=== PATIENT | female | born 1960 | race Caucasian/White ===

== ENCOUNTER 2022-05-26 13:19 | Outpatient (REF) | payer OTHER, SELFPAY ==
--- NOTE | 2022-05-26 14:21 | ECG_ITS ---
Test Reason : MAJOR DEPRESSIVW D/O Blood Pressure : / mmHG Vent. Rate : 080 BPM Atrial Rate : 080 BPM P-R Int : 158 ms QRS Dur : 070 ms QT Int : 370 ms P-R-T Axes : 050 009 021 degrees QTc Int : 426 ms Normal sinus rhythm Normal ECG When compared with ECG of 04-JAN-2018 16:41, Minimal criteria for Septal infarct are no longer Present Referred By: Cam Chang Electronically Signed By:SHERRON SAUCEDA
[2022-05-26 14:34] LABS: MANUAL DIFF FLAG NO
[2022-05-26 14:40] LABS: Basophils Percent Auto 0.5 % (0-2); Eosinophils Absolute Auto 0.3 X10*3/uL (0.0-0.4); Eosinophils Percent Auto 4.1 % (0-4); Hematocrit 40.5 % (37.0-47.0); Hemoglobin 13.7 g/dl (12.0-16.0); Imm Gran Abs Auto 0.02 X10*3/uL (0.00-0.03); Imm Gran Pct Auto 0.3 % (0.0-0.4); Lymphocytes Absolute Auto 1.5 X10*3/uL (1.2-4.9); Lymphocytes Percent Auto 22.1 % (20-40); Mean Corpuscular HGB Conc 33.8 g/dl (31.0-35.0); Mean Corpuscular Volume 85.6 fL (80.0-98.0); Mean Platelet Volume 10.5 fL (9.4-12.3); Monocytes Absolute Auto 0.4 X10*3/uL (0.1-1.2); Monocytes Percent Auto 5.6 % (2-11); Neutrophils Absolute Auto 4.5 x10*3/uL (2.0-8.3); Neutrophils Percent Auto 67.4 % (45-73); Platelet Count 204 X10*3/uL (160-400); Red Blood Count 4.73 X10*6/uL (4.20-5.50); Red Cell Distribution Width 15.2 % (11.0-16.0); White Blood Count 6.6 X10*3/uL (4.8-10.8)
[2022-05-26 15:04] LABS: Ammonia 26 umol/L (13-55)
[2022-05-26 15:09] LABS: Alanine Aminotransferase 42 U/L (0-31); Albumin Level 4.3 g/dL (3.5-5.0); Alkaline Phosphatase 91 U/L (39-117); Anion Gap 10 (12-20); Aspartate Amino Transferase 36 U/L (5-31); Bilirubin Total 0.6 mg/dL (0.0-1.0); Blood Urea Nitrogen 7 mg/dL (9-16); Calcium 9.2 mg/dL (8.4-10.2); Carbon Dioxide 28 mmol/L (22-29); Chloride 104 mmol/L (96-108); Estimated Glomerular Filt Rate > 60; Glucose Random 95 mg/dL (60-115); Potassium 4.4 mmol/L (3.3-5.1); Sodium 138 mmol/L (135-145)
[2022-05-26 15:31] LABS: Folate 9.7 ng/mL (> or = 4.0); TSH reflex Free T4 3.07 uIU/mL (0.32-4.0); Vitamin B12 1039 pg/mL (200-900)
== END 2022-05-26 13:20 | disposition home or self-care (01) ==
LOC: HO.LAB 13:19
PROVIDERS: Visit Provider Psychiatry & Neurology Psychiatry
DX: F33.2 Major depressive disorder, recurrent severe without psychotic features (principal); F10.90 Alcohol use, unspecified, uncomplicated
CPT/HCPCS: 36415; 80053; 82140; 82607; 82746; 84443; 85025; 90833; 93005; 99212

== ENCOUNTER 2022-05-29 13:26 | Emergency (ER) | payer OTHER, SELFPAY ==
[2022-05-29 14:01] VITALS: BP 160/99; PULSE 104; RESP 18; TEMP 36.6; O2SAT 97; BMI 31.8
[2022-05-29 14:09] LABS: UPreg QC Valid YES; Urine Pregnancy NEGATIVE (NEGATIVE)
[2022-05-29 14:10] LABS: Appearance Urine Clear; Color Urine Dark Yellow; Glucose Urine UA Negative (Negative); Leukocyte Esterase Urine Small (1+) (Negative); Nitrite Urine Negative (Negative); PH 6.5 (5.0-9.0); UMIC TRIGGER UACC YES; Urine Blood Negative (Negative); Urine Ketones Trace mg/dL (Negative); Urine Protein Trace mg/dL (Neg-Trace)
[2022-05-29 14:22] LABS: Bacteria Urine Trace (None Seen); COVID-19 Test Negative (Negative); Hyaline Casts Urine 0-2 /LPF (0-2); IDNOW Serial# 08D9AD1C; RBC Urine 0-2 /HPF (0-2); UACC Culture Trigger YES; WBC Urine 0-5 /HPF (0-5)
--- NOTE | 2022-05-29 14:24 | ED.PSYCH ---
HPI - Psych General Chief Complaint: Psychiatric Symptoms <JUSTIN Santos - Last Filed: 06/02/22 17:39> Stated Complaint: Crisis sent by Charlene <JUSTIN Santos Last Filed: 06/02/22 17:39> Time Seen by Provider: 05/29/22 14:11 <JUSTIN Santos Last Filed: 06/02/22 17:39> Source: patient <JUSTIN Santos Last Filed: 06/02/22 17:39> Mode of arrival: ambulatory <JUSTIN Santos Last Filed: 06/02/22 17:39> History of Present Illness HPI Narrative: 62-year-old female with a past medical history of alcohol use disorder, depression, presenting to the ED complaining of increasing depression and suicidal ideations without plan worsening with past few months after losing her mother, and 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 States she is having difficulty coping at home, would like to get help before it gets worse, reports feeling fearful. Reports drinking 2 glasses of red wine daily, and smoking THC prior to bed, denies other illicit substances. Denies CP/SOB, abdominal pain, nausea/vomiting, HI, AH/VH <JUSTIN Santos Last Filed: 06/02/22 17:39> MD complaint: suicidal ideation <JUSTIN Santos Last Filed: 06/02/22 17:39> Related Data Home Medications: Home Medications Medication Instructions Recorded Confirmed sertraline 100 mg tablet 200 mg PO BEDTIME 05/26/22 06/04/22 ferrous sulfate 325 mg (65 mg 325 mg PO 4XW 05/28/22 06/04/22 iron) tablet bupropion HCl 150 mg tablet,12 hr 150 mg PO DAILY 06/04/22 06/04/22 sustained-release trazodone 50 mg tablet 25 - 100 mg PO BEDTIME PRN Insomnia 06/04/22 06/04/22 Previous Rx's Medication Instructions Recorded cefuroxime axetil 250 mg tablet 250 mg PO BID 7 days #14 tabs 06/02/22 <JUSTIN Santos Last Filed: 06/02/22 17:39> Allergies/Adverse Reactions: Allergies Allergy/AdvReac Type Severity Reaction Status Date / Time Sulfa (Sulfonamide Allergy Rash Verified 05/29/22 13:53 Antibiotics) <JUSTIN Santos Last Filed: 06/02/22 17:39> Review of Systems Review of Systems: Constitutional: No Fever, No Chills, No Night Sweats, No Fatigue, No Malaise ENT/Mouth: No Hearing loss, No Ear Pain, No Nasal Congestion, No Sinus Pain, No Hoarseness, No sore throat, No Rhinorrhea, No Swallowing Difficulty Eyes: No Eye Pain, No Swelling, No Redness, No Foreign Body, No Discharge, No Vision Changes Cardiovascular: No Chest Pain, No SOB, No Dyspnea on Exertion, No Orthopnea, No Edema, No Palpitations Respiratory: No Cough, No Sputum, No Wheezing, No Smoke Exposure, No Dyspnea Gastrointestinal: No Nausea, No Vomiting, No Diarrhea, No Constipation, No Abdominal pain, No Hematochezia, No Melena Genitourinary: No irregular bleeding, No Dysuria, No Urinary Frequency, No Hematuria, No Urinary Incontinence/retention, No Urgency, No Flank Pain, No Urinary Flow Changes, No Hesitancy Musculoskeletal: No joint pain, No Myalgias, No Joint Swelling Skin: No Skin Lesions, No rash Neuro: No Weakness, No Numbness, No Paresthesias, No Loss of Consciousness, No Dizziness, No Headache Psych: + Anxiety/Panic, + Depression, + SI, No HI/AH/VH, No Social Issues <JUSTIN Santos Last Filed: 06/02/22 17:39> Yes all other systems are reviewed and are negative <JUSTIN Santos Last Filed: 06/02/22 17:39> Constitutional: Constitutional: Reports as per HPI <JUSTIN Santos Last Filed: 06/02/22 17:39> PMFSH Past Medical History Attestation statement: The following information was validated with the patient. <JUSTIN Santos Last Filed: 06/02/22 17:39> Medical History: Medical History Alcohol use disorder Depression, major, severe recurrence <JUSTIN Santos Last Filed: 06/02/22 17:39> Surgical History: Surgical History H/O bladder repair surgery History of hip replacement <JUSTIN Santos - Last Filed: 06/02/22 17:39> Social History Social History: Social History Household Members: None Patient Tobacco Use Status: Current everyday Tobacco user Tobacco use type: Cigarette Cigarettes Per Day: 5 <JUSTIN Santos - Last Filed: 06/02/22 17:39> Physical Exam Vital Signs: Vital Signs: Last Vital Signs Temp 98 F 05/29/22 14:01 Pulse 104 H 05/29/22 14:01 Resp 15 05/29/22 16:04 BP 160/99 H 05/29/22 14:01 Pulse Ox 97 05/29/22 14:01 O2 Del Method Room Air 05/29/22 14:01 BMI result Body Mass Index 31.8 <JUSTIN Santos - Last Filed: 06/02/22 17:39> Vital Signs: Last Vital Signs Temp 98 F 05/29/22 14:01 Pulse 104 H 05/29/22 14:01 Resp 15 05/29/22 16:04 BP 160/99 H 05/29/22 14:01 Pulse Ox 97 05/29/22 14:01 O2 Del Method Room Air 05/29/22 14:01 BMI result Body Mass Index 31.8 <Donnell Verdugo - Last Filed: 05/29/22 19:01> Const: General: cooperative, healthy appearing, no acute distress, alert and awake <JUSTIN Santos - Last Filed: 06/02/22 17:39> Orientation/consciousness: patient oriented x3 <JUSTIN Santos - Last Filed: 06/02/22 17:39> Limitations: no limitations <JUSTIN Santos - Last Filed: 06/02/22 17:39> HEENT: Head: Yes normal to inspection and Yes atraumatic <JUSTIN Santos - Last Filed: 06/02/22 17:39> Ears: hearing grossly normal bilaterally <JUSTIN Santos - Last Filed: 06/02/22 17:39> General nose exam: Normal external nose present <Carla Breen PA - Last Filed: 06/02/22 17:39> Face and sinus: Yes normal facial exam <Carla Breen PA - Last Filed: 06/02/22 17:39> Eyes: General: appearance normal, both eyes and all related structures <Carla Breen PA - Last Filed: 06/02/22 17:39> EOM: EOMs intact bilaterally <Carla Breen PA - Last Filed: 06/02/22 17:39> Neck: Neck: Yes normal visual inspection and Yes no meningeal signs <Carla Breen PA - Last Filed: 06/02/22 17:39> Resp: Effort & Inspection: normal respiratory effort and no respiratory distress <Carla Breen PA - Last Filed: 06/02/22 17:39> Auscultation: clear to auscultation bilaterally <Carla Breen PA - Last Filed: 06/02/22 17:39> Cardio: Rate: regular rate <Carla Breen PA - Last Filed: 06/02/22 17:39> Heart sounds: S1 normal heart sound present and S2 normal heart sound present <Carla Breen PA - Last Filed: 06/02/22 17:39> GI: Inspection: Yes normal to inspection <Carla Breen PA - Last Filed: 06/02/22 17:39> Palpation (GI): Soft to palpation, nontender, no guarding and not rigid <Carla Breen PA - Last Filed: 06/02/22 17:39> Skin: Rashes: no rashes <Carla Breen PA - Last Filed: 06/02/22 17:39> Wounds: no wounds <Carla Breen PA - Last Filed: 06/02/22 17:39> Neuro: General: patient oriented x3, tone normal and no meningeal signs <Carla Breen PA - Last Filed: 06/02/22 17:39> Gait exam (Neuro): Normal gait present <Carla Breen PA - Last Filed: 06/02/22 17:39> Extrem: General: Yes normal to inspection <Carla Breen PA - Last Filed: 06/02/22 17:39> Psych: Affect: Sad affect present <JUSTIN Santos - Last Filed: 06/02/22 17:39> Attitude: cooperative <JUSTIN Santos - Last Filed: 06/02/22 17:39> Thought content: Suicidality present, no homicidality and Depressive thoughts present <JUSTIN Santos - Last Filed: 06/02/22 17:39> Course Course Course Narrative: -labs unremarkable. Tox screen negative -1613--physician observation initiated as patient needs more time be evaluated by CARE team -1800-- ED care transferred to [facility] pending CARE consult <JUSTIN Santos - Last Filed: 06/02/22 17:39> -labs unremarkable. Tox screen negative -1613--physician observation initiated as patient needs more time be evaluated by CARE team -1800-- ED care transferred to [facility] pending CARE consult -1900 patient received in sign-out at change of shift shift pending care Team consult. The patient was seen and evaluated by the care team who also discussed with the patient's psychiatrist. The patient is stable for discharge at this time and the care team will follow the patient over the weekend and began a partial hospitalization search as soon as possible <Donnell Verdugo - Last Filed: 05/29/22 19:01> Reevaluation(s) Reevaluation #1: 06/02/22-- received patient urine culture which grew greater than 100,000 mixed bacteria. Called and spoke with patient, reports UTI symptoms, sent in Ceftin to the pharmacy. Admits she has follow-up with Dr. Chang tomorrow <JUSTIN Santos - Last Filed: 06/02/22 17:39> Medical Decision Making Medical Decision Making MDM Narrative: 62-year-old female with a past medical history of alcohol use disorder, depression, presenting to the ED complaining of increasing depression and suicidal ideations without plan worsening with past few months. On exam mildly tachycardic, depressed, sad, cooperative. Concern for increasing depression/suicidal ideations. Low suspicion for infectious or metabolic etiology Plan: Labs, UA, drug screen, CARE team consult Please refer to course for remaining clinical decision making, interpretation of labs/imaging results, and discussions with consultants and/or family members. <JUSTIN Santos - Last Filed: 06/02/22 17:39> Differential Diagnosis Differential Diagnoses: The differential diagnosis associated with the presentation includes <JUSTIN Santos - Last Filed: 06/02/22 17:39> As above <JUSTIN Santos - Last Filed: 06/02/22 17:39> Admission/Observation Consideration of admission/observation: Escalation of care including admission/observation considered <JUSTIN Santos - Last Filed: 06/02/22 17:39> Lab Data MDM Lab Attestation statement: I reviewed the patient's lab results. <JUSTIN Santos - Last Filed: 06/02/22 17:39> Result Diagrams: 05/29/22 15:25 05/29/22 15:25 <JUSTIN Santos - Last Filed: 06/02/22 17:39> Labs: Lab Results 05/29/22 05/29/22 05/29/22 Range/Units 14:01 14:01 14:01 WBC (4.8-10.8) X10*3/uL RBC (4.20-5.50) X10*6/uL Hgb (12.0-16.0) g/dl Hct (37.0-47.0) % MCV (80.0-98.0) fL MCH (27.0-33.0) pg MCHC (31.0-35.0) g/dl RDW (11.0-16.0) % Plt Count (160-400) X10*3/uL MPV (9.4-12.3) fL Immature Gran % (Auto) (0.0-0.4) % Neut % (Auto) (45-73) % Lymph % (Auto) (20-40) % [place] % (Auto) (2-11) % Eos % (Auto) (0-4) % Baso % (Auto) (0-2) % Lymph # (Auto) (1.2-4.9) X10*3/uL [place] # (Auto) (0.1-1.2) X10*3/uL Eos # (Auto) (0.0-0.4) X10*3/uL Baso # (Auto) (0.0-0.2) X10*3/uL Abs Immat Gran (auto) (0.00-0.03) X10*3/uL Absolute Neuts (auto) (2.0-8.3) x10*3/uL Absolute Nucleated RBC (0.0-0.012) X10*3/uL Nucleated RBC % (auto) (0.0-0.2) /100WBC Sodium (135-145) mmol/L Potassium (3.3-5.1) mmol/L Chloride (96-108) mmol/L Carbon Dioxide (22-29) mmol/L Anion Gap (12-20) BUN (9-16) mg/dL Creatinine (0.5-1.4) mg/dL Estim Creat Clear Calc Estimated GFR Random Glucose (60-115) mg/dL Calcium (8.4-10.2) mg/dL Total Bilirubin (0.0-1.0) mg/dL AST (5-31) U/L ALT (0-31) U/L Alkaline Phosphatase (39-117) U/L Total Protein (6.5-8.0) g/dL Albumin (3.5-5.0) g/dL Urine Color Dark Yellow Urine Appearance Clear Urine pH 6.5 (5.0-9.0) Ur Specific [place] 1.020 (1.005-1.025) Urine Protein Trace (Neg-Trace) mg/dL Urine Glucose (UA) Negative (Negative) mg/dL Urine Ketones Trace (Negative) mg/dL Urine Blood Negative (Negative) Urine Nitrite Negative (Negative) Ur Leukocyte Esterase Small (1+) H (Negative) Urine RBC 0-2 (0-2) /HPF Urine WBC 0-5 (0-5) /HPF Ur Squamous Epith Cells 6-10 (0-2) /HPF Urine Bacteria Trace (None Seen) Hyaline Casts 0-2 (0-2) /LPF Urine Test NEGATIVE (NEGATIVE) Salicylates (15-30) mg/dL Urine Opiates Screen (Not Detect) Urine Fentanyl Screen (Not Detect) Acetaminophen (<30) mcg/mL Ur Barbiturates Screen (Not Detect) Ur Phencyclidine Scrn (Not Detect) Ur Amphetamines Screen (Not Detect) U Benzodiazepines Scrn (Not Detect) Urine Cocaine Screen (Not Detect) U Marijuana (THC) Screen (Not Detect) Ethyl Alcohol mg/dL COVID-19 (BRAULIO) Negative (Negative) COVID-19 Clin Com See Note 05/29/22 05/29/22 05/29/22 Range/Units 14:01 15:25 15:25 WBC 5.7 (4.8-10.8) X10*3/uL RBC 4.50 (4.20-5.50) X10*6/uL Hgb 12.8 (12.0-16.0) g/dl Hct 38.5 (37.0-47.0) % MCV 85.6 (80.0-98.0) fL MCH 28.4 (27.0-33.0) pg MCHC 33.2 (31.0-35.0) g/dl RDW 15.1 (11.0-16.0) % Plt Count 176 (160-400) X10*3/uL MPV 10.5 (9.4-12.3) fL Immature Gran % (Auto) 0.2 (0.0-0.4) % Neut % (Auto) 72.3 (45-73) % Lymph % (Auto) 18.5 L (20-40) % [place] % (Auto) 5.4 (2-11) % Eos % (Auto) 3.1 (0-4) % Baso % (Auto) 0.5 (0-2) % Lymph # (Auto) 1.1 L (1.2-4.9) X10*3/uL [place] # (Auto) 0.3 (0.1-1.2) X10*3/uL Eos # (Auto) 0.2 (0.0-0.4) X10*3/uL Baso # (Auto) 0.0 (0.0-0.2) X10*3/uL Abs Immat Gran (auto) 0.01 (0.00-0.03) X10*3/uL Absolute Neuts (auto) 4.1 (2.0-8.3) x10*3/uL Absolute Nucleated RBC 0.000 (0.0-0.012) X10*3/uL Nucleated RBC % (auto) 0.0 (0.0-0.2) /100WBC Sodium 139 (135-145) mmol/L Potassium 4.5 (3.3-5.1) mmol/L Chloride 106 (96-108) mmol/L Carbon Dioxide 27 (22-29) mmol/L Anion Gap 11 L (12-20) BUN 11 (9-16) mg/dL Creatinine 0.76 (0.5-1.4) mg/dL Estim Creat Clear Calc 79.6 Estimated GFR > 60 Random Glucose 108 (60-115) mg/dL Calcium 8.9 (8.4-10.2) mg/dL Total Bilirubin 0.5 (0.0-1.0) mg/dL AST 26 (5-31) U/L ALT 29 (0-31) U/L Alkaline Phosphatase 82 (39-117) U/L Total Protein 6.5 (6.5-8.0) g/dL Albumin 4.0 (3.5-5.0) g/dL Urine Color Urine Appearance Urine pH (5.0-9.0) Ur Specific [place] (1.005-1.025) Urine Protein (Neg-Trace) mg/dL Urine Glucose (UA) (Negative) mg/dL Urine Ketones (Negative) mg/dL Urine Blood (Negative) Urine Nitrite (Negative) Ur Leukocyte Esterase (Negative) Urine RBC (0-2) /HPF Urine WBC (0-5) /HPF Ur Squamous Epith Cells (0-2) /HPF Urine Bacteria (None Seen) Hyaline Casts (0-2) /LPF Urine Test (NEGATIVE) Salicylates < 5.0 L (15-30) mg/dL Urine Opiates Screen Not Detected (Not Detect) Urine Fentanyl Screen POSITIVE H (Not Detect) Acetaminophen < 17 (<30) mcg/mL Ur Barbiturates Screen Not Detected (Not Detect) Ur Phencyclidine Scrn Not Detected (Not Detect) Ur Amphetamines Screen Not Detected (Not Detect) U Benzodiazepines Scrn Not Detected (Not Detect) Urine Cocaine Screen Not Detected (Not Detect) U Marijuana (THC) Screen POSITIVE H (Not Detect) Ethyl Alcohol < 10 mg/dL COVID-19 (BRAULIO) (Negative) COVID-19 Clin Com <JUSTIN Santos - Last Filed: 06/02/22 17:39> Lab Results 05/29/22 05/29/22 05/29/22 Range/Units 14:01 14:01 14:01 WBC (4.8-10.8) X10*3/uL RBC (4.20-5.50) X10*6/uL Hgb (12.0-16.0) g/dl Hct (37.0-47.0) % MCV (80.0-98.0) fL MCH (27.0-33.0) pg MCHC (31.0-35.0) g/dl RDW (11.0-16.0) % Plt Count (160-400) X10*3/uL MPV (9.4-12.3) fL Immature Gran % (Auto) (0.0-0.4) % Neut % (Auto) (45-73) % Lymph % (Auto) (20-40) % [place] % (Auto) (2-11) % Eos % (Auto) (0-4) % Baso % (Auto) (0-2) % Lymph # (Auto) (1.2-4.9) X10*3/uL [place] # (Auto) (0.1-1.2) X10*3/uL Eos # (Auto) (0.0-0.4) X10*3/uL Baso # (Auto) (0.0-0.2) X10*3/uL Abs Immat Gran (auto) (0.00-0.03) X10*3/uL Absolute Neuts (auto) (2.0-8.3) x10*3/uL Absolute Nucleated RBC (0.0-0.012) X10*3/uL Nucleated RBC % (auto) (0.0-0.2) /100WBC Sodium (135-145) mmol/L Potassium (3.3-5.1) mmol/L Chloride (96-108) mmol/L Carbon Dioxide (22-29) mmol/L Anion Gap (12-20) BUN (9-16) mg/dL Creatinine (0.5-1.4) mg/dL Estim Creat Clear Calc Estimated GFR Random Glucose (60-115) mg/dL Calcium (8.4-10.2) mg/dL Total Bilirubin (0.0-1.0) mg/dL AST (5-31) U/L ALT (0-31) U/L Alkaline Phosphatase (39-117) U/L Total Protein (6.5-8.0) g/dL Albumin (3.5-5.0) g/dL Urine Color Dark Yellow Urine Appearance Clear Urine pH 6.5 (5.0-9.0) Ur Specific [place] 1.020 (1.005-1.025) Urine Protein Trace (Neg-Trace) mg/dL Urine Glucose (UA) Negative (Negative) mg/dL Urine Ketones Trace (Negative) mg/dL Urine Blood Negative (Negative) Urine Nitrite Negative (Negative) Ur Leukocyte Esterase Small (1+) H (Negative) Urine RBC 0-2 (0-2) /HPF Urine WBC 0-5 (0-5) /HPF Ur Squamous Epith Cells 6-10 (0-2) /HPF Urine Bacteria Trace (None Seen) Hyaline Casts 0-2 (0-2) /LPF Urine Test NEGATIVE (NEGATIVE) Salicylates (15-30) mg/dL Urine Opiates Screen (Not Detect) Urine Fentanyl Screen (Not Detect) Acetaminophen (<30) mcg/mL Ur Barbiturates Screen (Not Detect) Ur Phencyclidine Scrn (Not Detect) Ur Amphetamines Screen (Not Detect) U Benzodiazepines Scrn (Not Detect) Urine Cocaine Screen (Not Detect) U Marijuana (THC) Screen (Not Detect) Ethyl Alcohol mg/dL COVID-19 (BRAULIO) Negative (Negative) COVID-19 Clin Com See Note 05/29/22 05/29/22 05/29/22 Range/Units 14:01 15:25 15:25 WBC 5.7 (4.8-10.8) X10*3/uL RBC 4.50 (4.20-5.50) X10*6/uL Hgb 12.8 (12.0-16.0) g/dl Hct 38.5 (37.0-47.0) % MCV 85.6 (80.0-98.0) fL MCH 28.4 (27.0-33.0) pg MCHC 33.2 (31.0-35.0) g/dl RDW 15.1 (11.0-16.0) % Plt Count 176 (160-400) X10*3/uL MPV 10.5 (9.4-12.3) fL Immature Gran % (Auto) 0.2 (0.0-0.4) % Neut % (Auto) 72.3 (45-73) % Lymph % (Auto) 18.5 L (20-40) % [place] % (Auto) 5.4 (2-11) % Eos % (Auto) 3.1 (0-4) % Baso % (Auto) 0.5 (0-2) % Lymph # (Auto) 1.1 L (1.2-4.9) X10*3/uL [place] # (Auto) 0.3 (0.1-1.2) X10*3/uL Eos # (Auto) 0.2 (0.0-0.4) X10*3/uL Baso # (Auto) 0.0 (0.0-0.2) X10*3/uL Abs Immat Gran (auto) 0.01 (0.00-0.03) X10*3/uL Absolute Neuts (auto) 4.1 (2.0-8.3) x10*3/uL Absolute Nucleated RBC 0.000 (0.0-0.012) X10*3/uL Nucleated RBC % (auto) 0.0 (0.0-0.2) /100WBC Sodium 139 (135-145) mmol/L Potassium 4.5 (3.3-5.1) mmol/L Chloride 106 (96-108) mmol/L Carbon Dioxide 27 (22-29) mmol/L Anion Gap 11 L (12-20) BUN 11 (9-16) mg/dL Creatinine 0.76 (0.5-1.4) mg/dL Estim Creat Clear Calc 79.6 Estimated GFR > 60 Random Glucose 108 (60-115) mg/dL Calcium 8.9 (8.4-10.2) mg/dL Total Bilirubin 0.5 (0.0-1.0) mg/dL AST 26 (5-31) U/L ALT 29 (0-31) U/L Alkaline Phosphatase 82 (39-117) U/L Total Protein 6.5 (6.5-8.0) g/dL Albumin 4.0 (3.5-5.0) g/dL Urine Color Urine Appearance Urine pH (5.0-9.0) Ur Specific [place] (1.005-1.025) Urine Protein (Neg-Trace) mg/dL Urine Glucose (UA) (Negative) mg/dL Urine Ketones (Negative) mg/dL Urine Blood (Negative) Urine Nitrite (Negative) Ur Leukocyte Esterase (Negative) Urine RBC (0-2) /HPF Urine WBC (0-5) /HPF Ur Squamous Epith Cells (0-2) /HPF Urine Bacteria (None Seen) Hyaline Casts (0-2) /LPF Urine Test (NEGATIVE) Salicylates < 5.0 L (15-30) mg/dL Urine Opiates Screen Not Detected (Not Detect) Urine Fentanyl Screen POSITIVE H (Not Detect) Acetaminophen < 17 (<30) mcg/mL Ur Barbiturates Screen Not Detected (Not Detect) Ur Phencyclidine Scrn Not Detected (Not Detect) Ur Amphetamines Screen Not Detected (Not Detect) U Benzodiazepines Scrn Not Detected (Not Detect) Urine Cocaine Screen Not Detected (Not Detect) U Marijuana (THC) Screen POSITIVE H (Not Detect) Ethyl Alcohol < 10 mg/dL COVID-19 (BRAULIO) (Negative) COVID-19 Clin Com <Donnell Verdugo - Last Filed: 05/29/22 19:01> Radiology Impression Discussion of test interpretation with radiology: I have reviewed the radiologist's reading. <JUSTIN Santos - Last Filed: 06/02/22 17:39> External Record Review External record reviewed: Inpatient record, Office record, Outpatient record, Prior outpatient labs, Prior outpatient radiology, Primary care record and Outside ED record <JUSTIN Santos - Last Filed: 06/02/22 17:39> Discharge Plan Discharge Clinical Impression: Depression, major, severe recurrence <JUSTIN Santos - Last Filed: 06/02/22 17:39> Patient Disposition: Home, Self-Care <JUSTIN Satnos - Last Filed: 06/02/22 17:39> Instructions: Depression (ED) <JUSTIN Santos - Last Filed: 06/02/22 17:39> Additional Instructions: Take all your medications as prescribed only. Follow-up with your psychiatrist. Return to the emergency department immediately if you develop any worsening depression or thoughts of harming yourself <JUSTIN Satnos - Last Filed: 06/02/22 17:39> Prescriptions: New cefuroxime axetil 250 mg tablet 250 mg PO BID 7 Days Qty: 14 0RF No Action bupropion HCl 150 mg tablet sustained-release 12 hr 150 mg PO DAILY Patient Comments: Patient reports she restarted Wellbutrin [address] Howell is aware and patient is to continue. trazodone 50 mg tablet 25 - 100 mg PO BEDTIME PRN (Reason: Insomnia) Patient Comments: Patient reports she is taking Trazodone prn. Rx Instructions: Last filled 08/2021. sertraline 100 mg tablet 200 mg PO BEDTIME ferrous sulfate 325 mg (65 mg iron) tablet 325 mg PO 4XW <JUSTIN Santos - Last Filed: 06/02/22 17:39> Interventions: [place]-Suicide Risk Severity Scale Last Done: 05/29/22 14:52 ED Discharge Assessment Last Done: 05/29/22 19:04 <JUSTIN Santos - Last Filed: 06/02/22 17:39> Discharge Date/Time: 05/29/22 19:45 <JUSTIN Santos - Last Filed: 06/02/22 17:39>
[2022-05-29 15:29] LABS: MANUAL DIFF FLAG NO
[2022-05-29 15:31] LABS: Basophils Percent Auto 0.5 % (0-2); Eosinophils Absolute Auto 0.2 X10*3/uL (0.0-0.4); Eosinophils Percent Auto 3.1 % (0-4); Hematocrit 38.5 % (37.0-47.0); Hemoglobin 12.8 g/dl (12.0-16.0); Imm Gran Abs Auto 0.01 X10*3/uL (0.00-0.03); Imm Gran Pct Auto 0.2 % (0.0-0.4); Lymphocytes Absolute Auto 1.1 X10*3/uL (1.2-4.9); Lymphocytes Percent Auto 18.5 % (20-40); Mean Corpuscular HGB Conc 33.2 g/dl (31.0-35.0); Mean Corpuscular Hemoglobin 28.4 pg (27.0-33.0); Mean Corpuscular Volume 85.6 fL (80.0-98.0); Mean Platelet Volume 10.5 fL (9.4-12.3); Monocytes Absolute Auto 0.3 X10*3/uL (0.1-1.2); Monocytes Percent Auto 5.4 % (2-11); Neutrophils Absolute Auto 4.1 x10*3/uL (2.0-8.3); Neutrophils Percent Auto 72.3 % (45-73); Platelet Count 176 X10*3/uL (160-400); Red Cell Distribution Width 15.1 % (11.0-16.0); White Blood Count 5.7 X10*3/uL (4.8-10.8)
[2022-05-29 15:54] LABS: Acetaminophen LAB < 17 mcg/mL (<30); Alanine Aminotransferase 29 U/L (0-31); Alkaline Phosphatase 82 U/L (39-117); Anion Gap 11 (12-20); Aspartate Amino Transferase 26 U/L (5-31); Bilirubin Total 0.5 mg/dL (0.0-1.0); Blood Urea Nitrogen 11 mg/dL (9-16); Calcium 8.9 mg/dL (8.4-10.2); Carbon Dioxide 27 mmol/L (22-29); Chloride 106 mmol/L (96-108); Creatinine Clr Calc Pharmacy 79.6; Estimated Glomerular Filt Rate > 60; Ethanol < 10 mg/dL; Glucose Random 108 mg/dL (60-115); Potassium 4.5 mmol/L (3.3-5.1); Salicylate < 5.0 mg/dL (15-30); Sodium 139 mmol/L (135-145); Total Protein 6.5 g/dL (6.5-8.0)
[2022-05-29 16:04] VITALS: RESP 15
[2022-05-29 16:55] LABS: Amphetamine Screen Urine Not Detected (Not Detect); Barbiturates, Urine Not Detected (Not Detect); Benzodiazepines Screen Urine Not Detected (Not Detect); Cannabinoid Screen Urine POSITIVE (Not Detect); Cocaine Screen Urine Not Detected (Not Detect); Fentanyl, urine POSITIVE (Not Detect); Opiate Screen Urine Not Detected (Not Detect); Phencyclidine Screen Urine Not Detected (Not Detect)
--- NOTE | 2022-05-29 17:37 | PC.NURSE ---
CARE team clinician at bedside for eval. Pt appears to be in behavioral control at this time.
--- NOTE | 2022-05-30 11:22 | MHC.CARE ---
Pt has been referred to Molly [facility]KEON on this date
--- NOTE | 2022-05-30 14:16 | MHC.CARE ---
CARE Team contacts pt to conduct a follow up phone call. Pt reports that she feels great and could dance . She reports the electric shock feeling as being almost gone. She reports good sleep and appetite and attributes her overall sense of well being to knowing what her issue is that brought her to the ED.
== END 2022-05-29 19:45 | disposition home or self-care (01) ==
PROVIDERS: Physician Assistant; Emergency Provider Emergency Medicine Emergency Medical Services
DX: F33.2 Major depressive disorder, recurrent severe without psychotic features (principal); R45.851 Suicidal ideations; Z20.822 Contact with and (suspected) exposure to COVID-19; F10.90 Alcohol use, unspecified, uncomplicated; Y90.0 Blood alcohol level of less than 20 mg/100 ml; F41.9 Anxiety disorder, unspecified; F17.210 Nicotine dependence, cigarettes, uncomplicated; F12.90 Cannabis use, unspecified, uncomplicated; Z79.899 Other long term (current) drug therapy
CPT/HCPCS: 36415; 80053; 80143; 80179; 80307; 81001; 81025; 82077; 85025; 87086; 87635; 99284; S9485

== ENCOUNTER 2022-06-26 09:00 | Outpatient (RCR) | payer OTHER, SELFPAY ==
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
--- NOTE | 2022-06-04 15:41 | PC.ADMIT ---
Patient is a 62 year old female who was referred to PHP by the Care Team in the ER where she self presented d/t increased sxs of depression with passive SI and anxiety. Per records patient reported to the Care Team that she has a , thunderstorm in her brain unable to focus or concentrate on things she normally is able to. She reportedly told the Care Team that she saw her psychiatrist Dr Chang on 05/26/22 and infomed him of increased depression for the past 3 weks and increased her Zoloft to 300 mg daily as a result. Patient advised to take medcaitions as prescribed which she currently stated she is taking 200 mg Zoloft daily. Patient also told this engineering writer that she restarted Wellbutrin prescription, Dr Chang is aware and patient to continue. Patient also has a history of struggling with ETOH use reported drinking a handle of Vodka or Tequila a week. Patient reports she has cut down and now has a glass of wine 5 days a week and adds water to it. Patient is alert and oriented x4. Calm and cooperative. Presents with depressed mood and affect. Passive SI, denied plan or intent. I gave patient a copy of her safety plan if needed and reviewed it with her. Medications reconciled with patient, patient's pharmacy, and Dr Chang.
--- NOTE | 2022-06-04 15:47 | HO.PHP ---
Clients case was reviewed and opened today in treatment team.
--- NOTE | 2022-06-11 12:26 | P.PNPSP_ITS ---
Subjective Subjective Date of Service: 06/11/22 Reason For Visit: depression Medical Problems Affecting Mental Status: No Interim History: Reports feeling ?tired today ?. Continues with depressed mood, states some improvement, finding PHP helpful. Reports no alcohol or nicotine consumption for past 3 days. Denies SI, reports that she feels safe. Had job interview yesterday. Wants therapist referral. Medication Compliance: Yes Side effects from medications: No Attending Groups: Yes Review of Systems Acute medical concerns: No Medical Review of Systems: unchanged Review of Systems Review of Systems Yes all other systems are reviewed and are negative Constitutional: Reports no additional constitutional complaints Mental Status Exam Mental Status Exam Narrative: NAD Patient Appearance: Well Grooomed Patient Orientation: Person, Place, Time and Situation Level of Consciousness: Appropriate Patient Behavior: Appropriate, Cooperative and Good Eye Contact Mood Description: Depressed Affect Description: Depressed Patient Cognition Impaired: No Ability to Follow Directions: Excellent Speech Pattern: Clear Memory Description: Intact Hallucinations: None Delusions: Not Present Thought Process: Intact Thought Content: positive for Intact Depressive Symptoms: Increased Anxiety, Difficulty Sleeping, Loss of Int. in Activity, Isolating-Friends/Family, Increased Fatigue, Loss of Energy and Difficulty Concentrating Judgement: Fair Assessment & Plan Assessment & Plan (1) Depression, major, severe recurrence: Status: Acute Code(s): F33.2 - Major depressive disorder, recurrent severe without psychotic features Assessment and Plan: Reports feeling ?tired today ?. Finding groups to be draining at times, although beneficial. Also states that the amount of energy it took yesterday for her to go to a job interview was tiring. Continues with depressed mood, states some improvement, finding PHP helpful. Reports no alcohol or nicotine consumption for past 3 days. Discussed in alcohol use, and its relationship as a depressant, worsening depressive symptoms. She states that she has chosen for the past 3 days not to consume any, and has found this beneficial. States that when she does consume alcohol at this time, it is now better is a mix with water, as she has been tapering down her use over the past 2 years. Denies SI, reports that she feels safe. Had job interview yesterday. Reports that the position would be in-person, and that this may assist with adding daily structure. Wants therapist referral. States that she understands she really needs to begin working with a therapist. We discussed a referral to [facility]. She stated she was interested in this. Satisfied with current medication regimen, feels it is helping to lower depressive sx. (2) Alcohol use disorder: Status: Acute Code(s): F10.90 - Alcohol use, unspecified, uncomplicated Plan 1. Continue with current [facility] plan of care. 2. Continue with current medications as prescribed by outpatient psychiatrist. 3. Alcohol risk reduction/harm reduction discussion. 4. Follow-up as per protocol. Patient educated on: diagnosis, medication risk/benefits, substance abuse and therapeutic strategies Reason for contiued partial hosp. stay Substantial Risk for: harm to self, inability to function and rapid decompensation Certification I certify that partial hospital treatment is medically necessary due to the symptoms and problems resulting from the patient's mental illness and the failure to treat the patient at the partial hospital level of care would likely result in the patient requiring inpatient psychiatric care which could not be prevented at a less intensive level of care. Total time managing care of this patient today _20___ minutes. Discharge Plan Discharge Attending provider: Wayne Bond Medications: No Action cefuroxime axetil 250 mg tablet 250 mg PO BID 7 Days Qty: 14 0RF bupropion HCl 150 mg tablet sustained-release 12 hr 150 mg PO DAILY Patient Comments: Patient reports she restarted Wellbutrin [address] Howell is aware and patient is to continue. trazodone 50 mg tablet 25 - 100 mg PO BEDTIME PRN (Reason: Insomnia) Patient Comments: Patient reports she is taking Trazodone prn. Rx Instructions: Last filled 08/2021. sertraline 100 mg tablet 200 mg PO BEDTIME ferrous sulfate 325 mg (65 mg iron) tablet 325 mg PO 4XW
--- NOTE | 2022-06-18 12:09 | HO.PHPPROGNO ---
Subjective Subjective Date of Service: 06/18/22 Reason For Visit: depression Medical Problems Affecting Mental Status: No Interim History: Anxious, concerned about what she will do when she discharges from partial program. No SI, depression improved. Feels safe. States she hopes to find a therapist soon. Reports current medication regimen working well. Has remained abstinent from alcohol for 9 days. Medication Compliance: Yes Side effects from medications: No Attending Groups: Yes Review of Systems Acute medical concerns: No Medical Review of Systems: unchanged Review of Systems Review of Systems Yes all other systems are reviewed and are negative Constitutional: Reports no additional constitutional complaints Mental Status Exam Mental Status Exam Narrative: NAD Patient Appearance: Well Grooomed Patient Orientation: Person, Place, Time and Situation Level of Consciousness: Appropriate Patient Behavior: Appropriate, Cooperative and Good Eye Contact Mood Description: Anxious Affect Description: Depressed (improved) and Anxious Patient Cognition Impaired: No Ability to Follow Directions: Excellent Speech Pattern: Clear Memory Description: Intact Hallucinations: None Delusions: Not Present Thought Process: Intact Thought Content: positive for Intact Depressive Symptoms: Increased Anxiety Judgement: Fair Assessment & Plan Assessment & Plan (1) Depression, major, severe recurrence: Status: Acute Code(s): F33.2 - Major depressive disorder, recurrent severe without psychotic features Assessment and Plan: Depression symptoms improved. Satisfied with current antidepressant medication and dose. No SI, feels safe. Express some anxiety, finds structure and groups in partial helpful. Anxious about finding a therapist. No alcohol in 9 days. Denies any cravings. We discussed medications, patient had been given information regarding medications in the past. Discussed a trial of naltrexone at this time. She was agreeable. Patient was provided with information regarding various support groups for alcohol use. Some nicotine cravings, Not smoking currently. Finds the Wellbutrin helping with this. (2) Alcohol use disorder: Status: Acute Code(s): F10.90 - Alcohol use, unspecified, uncomplicated Plan 1. Continue with current [facility] plan of care. 2. Start naltrexone. 3. Continue other medications as prescribed. 4. Recovery support/risk reduction discussion. 5. Follow-up as per protocol. Patient educated on: diagnosis, medication risk/benefits, substance abuse and therapeutic strategies Informed Consent: understands Reason for contiued partial hosp. stay Substantial Risk for: inability to function and rapid decompensation Certification I certify that partial hospital treatment is medically necessary due to the symptoms and problems resulting from the patient's mental illness and the failure to treat the patient at the partial hospital level of care would likely result in the patient requiring inpatient psychiatric care which could not be prevented at a less intensive level of care. Total time managing care of this patient today __20__ minutes. Discharge Plan Discharge Attending provider: Wayne Bond Medications: New naltrexone 50 mg tablet 50 mg PO DAILY Qty: 30 0RF Rx Instructions: Take 25mg (1/2 tab) for 4 days, then increase to 50mg daily No Action cefuroxime axetil 250 mg tablet 250 mg PO BID 7 Days Qty: 14 0RF bupropion HCl 150 mg tablet sustained-release 12 hr 150 mg PO DAILY Patient Comments: Patient reports she restarted Wellbutrin [address] Howell is aware and patient is to continue. trazodone 50 mg tablet 25 - 100 mg PO BEDTIME PRN (Reason: Insomnia) Patient Comments: Patient reports she is taking Trazodone prn. Rx Instructions: Last filled 08/2021. sertraline 100 mg tablet 200 mg PO BEDTIME ferrous sulfate 325 mg (65 mg iron) tablet 325 mg PO 4XW Stand Alone Forms: Patient Portal Discharge page
--- NOTE | 2022-06-19 08:15 | HO.PHP ---
PHP staff followed up with Nat after group three due to her becoming emotional around the loss of her mother and feeling as though she is starting to process the loss of her mother, ex-, and step-son all at once after suppressing it for so long. Nat stated in the third group that she would like an extension. When PHP staff met with Nat after group three, PHP staff encouraged Nat to talk with her assigned Behavioral Health Specialist II when they return on Wednesday to see if she is able to get an extenstion. Nat noted that she can't attend group on Wednesday due to having an important opportunity for her career that she cannot miss again. PHP staff mentioned if she is unable to be here on Wednesday, then to contact PHP staff via telephone and ask if she can extend. Nat was receptive. Nat discussed fond memories of her mother with PHP staff.
--- NOTE | 2022-06-25 13:31 | P.PNPSP_ITS ---
Subjective Subjective Date of Service: 06/25/22 Reason For Visit: depression Medical Problems Affecting Mental Status: No Interim History: Improve mood, feel stable. No SI, no safety concerns. Remains abstinent from alcohol nicotine. Denies cravings. Did not start naltrexone, read label including side effects. Not sure if she will take the naltrexone at all. Feels stable for discharge from [facility] tomorrow. Has found the structure and groups extremely helpful. Plans to travel to her mother's house, siblings and she are preparing it for sale. After that plans to go to [place] to visit her son for 10 days. Looking forward to this. Medication Compliance: Yes Side effects from medications: No Attending Groups: Yes Review of Systems Acute medical concerns: No Medical Review of Systems: unchanged Review of Systems Review of Systems Yes all other systems are reviewed and are negative Constitutional: Reports no additional constitutional complaints Mental Status Exam Mental Status Exam Narrative: NAD Patient Appearance: Well Grooomed Patient Orientation: Person, Place, Time and Situation Level of Consciousness: Appropriate Patient Behavior: Appropriate, Cooperative and Good Eye Contact Mood Description: Calm and Appropriate Affect Description: Calm and Appropriate Patient Cognition Impaired: No Ability to Follow Directions: Excellent Speech Pattern: Clear Memory Description: Intact Hallucinations: None Delusions: Not Present Thought Process: Intact Thought Content: positive for Intact Judgement: Good Assessment & Plan Assessment & Plan (1) Depression, major, severe recurrence: Status: Acute Code(s): F33.2 - Major depressive disorder, recurrent severe without psychotic features Assessment and Plan: Improved mood, feel stable. Calm. Taking psychiatric meds as prescribed, no concerns. No SI, no safety concerns. Remains abstinent from alcohol nicotine. Denies cravings. Did not start naltrexone, read label including side effects. Concerned about the multiple side effects, not sure if she will plan to take this at all. Discussed the medication with patient. Feels stable for discharge from [facility] tomorrow. Has found the structure and groups extremely helpful. Has plans with family for next several weeks after discharge tomorrow. Awaiting information regarding therapy. States she is looking forward to working with a therapist going forward. (2) Alcohol use disorder: Status: Acute Code(s): F10.90 - Alcohol use, unspecified, uncomplicated Plan 1. Patient appears stable for discharge from [facility] at this time. 2. Patient to continue with medications as prescribed by outpatient psychiatrist. 3. Patient to follow-up with outpatient providers going forward. Patient educated on: diagnosis, medication risk/benefits, substance abuse and therapeutic strategies Informed Consent: understands Reason for contiued partial hosp. stay Substantial Risk for: stable for discharge Certification I certify that partial hospital treatment is medically necessary due to the symptoms and problems resulting from the patient's mental illness and the failure to treat the patient at the partial hospital level of care would likely result in the patient requiring inpatient psychiatric care which could not be prevented at a less intensive level of care. Total time managing care of this patient today _20___ minutes. Discharge Plan Discharge Attending provider: Wayne Bond Medications: New naltrexone 50 mg tablet 50 mg PO DAILY Qty: 30 0RF Rx Instructions: Take 25mg (1/2 tab) for 4 days, then increase to 50mg daily sertraline 100 mg tablet 200 mg PO BEDTIME Qty: 60 0RF Discontinued sertraline 100 mg tablet 200 mg PO BEDTIME No Action cefuroxime axetil 250 mg tablet 250 mg PO BID 7 Days Qty: 14 0RF bupropion HCl 150 mg tablet sustained-release 12 hr 150 mg PO DAILY Patient Comments: Patient reports she restarted Wellbutrin [address] Howell is aware and patient is to continue. trazodone 50 mg tablet 25 - 100 mg PO BEDTIME PRN (Reason: Insomnia) Patient Comments: Patient reports she is taking Trazodone prn. Rx Instructions: Last filled 08/2021. ferrous sulfate 325 mg (65 mg iron) tablet 325 mg PO 4XW Stand Alone Forms: Patient Portal Discharge page
== END 2022-06-26 23:59 | disposition home or self-care (01) ==
LOC: HO.PHPA 09:00
PROVIDERS: Visit Provider Psychiatry & Neurology Psychiatry
DX: F33.2 Major depressive disorder, recurrent severe without psychotic features (principal); F10.90 Alcohol use, unspecified, uncomplicated
CPT/HCPCS: 90791; 90853

== ENCOUNTER 2022-09-16 15:38 | Outpatient (AMB) | payer OTHER, SELFPAY ==
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
== END 2022-09-16 15:39 | disposition home or self-care (01) ==
LOC: HO.HOP 15:38
PROVIDERS: Visit Provider Psychiatry & Neurology Psychiatry
DX: F10.90 Alcohol use, unspecified, uncomplicated (principal); F33.9 Major depressive disorder, recurrent, unspecified
CPT/HCPCS: 90833; 99213

== ENCOUNTER → 2022-09-16 15:38 | Outpatient (BNVA) | payer OTHER, SELFPAY | PROVIDERS: Visit Provider Psychiatry & Neurology Psychiatry | DX: F33.2 Major depressive disorder, recurrent severe without psychotic features (principal); F10.90 Alcohol use, unspecified, uncomplicated; F34.1 Dysthymic disorder | CPT/HCPCS: 90833; 99212 ==

== ENCOUNTER 2023-05-19 13:50 | Outpatient (AMB) | payer OTHER, SELFPAY ==
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
== END 2023-05-19 14:29 | disposition home or self-care (01) ==
LOC: HO.HOP 13:50
PROVIDERS: PCP Internal Medicine; Visit Provider Psychiatry & Neurology Psychiatry
DX: F33.9 Major depressive disorder, recurrent, unspecified (principal); F10.21 Alcohol dependence, in remission
CPT/HCPCS: 90833; 99213

== ENCOUNTER → 2023-05-19 13:50 | Outpatient (BNVA) | payer OTHER, SELFPAY | PROVIDERS: PCP Internal Medicine; Visit Provider Psychiatry & Neurology Psychiatry | DX: F33.9 Major depressive disorder, recurrent, unspecified (principal); F10.21 Alcohol dependence, in remission | CPT/HCPCS: 99212 ==

== ENCOUNTER 2023-08-25 13:43 | Outpatient (AMB) | payer OTHER, SELFPAY ==
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
== END 2023-08-25 14:54 | disposition home or self-care (01) ==
LOC: HO.HOP 13:43
PROVIDERS: PCP Internal Medicine; Visit Provider Psychiatry & Neurology Psychiatry
DX: F33.9 Major depressive disorder, recurrent, unspecified (principal)
CPT/HCPCS: 90833; 99213

== ENCOUNTER → 2023-08-25 13:43 | Outpatient (BNVA) | payer OTHER, SELFPAY | PROVIDERS: PCP Internal Medicine; Visit Provider Psychiatry & Neurology Psychiatry | DX: F33.9 Major depressive disorder, recurrent, unspecified (principal) | CPT/HCPCS: 99212 ==

== ENCOUNTER 2024-05-11 13:05 | Outpatient (AMB) | payer OTHER, SELFPAY ==
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
--- OUTSIDE RECORDS SUMMARY | 2024-05-11 16:37 | XMS_ITS | Clinical Summary ---
Author Organization [facility] Address [address] [place] [address] Care Team Providers Care It Analyst Name Role Phone Brooke Barger MD Primary Care Provider [phone] Allergies Active Allergy Reactions Criticality Noted Date Comments Amoxicillin-Pot Clavulanate Diarrhea High 05/01/19 19 Sulfa (Sulfonamide Antibiotics) 12/07/2016 Other Reaction(s): Rash/Dermatitis Medications buPROPion XL (WELLBUTRIN XL) 300 mg 24 hr tablet Take 1 tablet (300 mg total) by mouth 1 (one) time each day in the morning. Active celecoxib (CeleBREX) 200 mg capsule TAKE 1 CAPSULE BY MOUTH 2 TIMES DAILY NEEDED FOR PAIN (TAKE WITH FOOD AND STAY HYDRATED). 3 Active ferrous sulfate 325 mg (65 mg elemental iron) tablet TAKE 1 TABLET BY MOUTH 4 TIMES A WEEK. TAKE WITH VITAMIN C. 4 Active sertraline (ZOLOFT) 100 mg tablet Take 1 tablet (100 mg total) by mouth 1 (one) time each day. 1 Active traZODone (DESYREL) 50 mg tablet 1 Active atorvastatin (LIPITOR) 10 mg tablet TAKE 1 TABLET BY MOUTH EVERY DAY 90 tablet 3 5 Active atorvastatin (LIPITOR) 10 mg tablet Take 1 Tablet by mouth daily for 360 days. 4 05/12/19 25 Discontinued Active Problems Problem Noted Date Diagnosed Date Anemia 03/05/2024 Acute postoperative anemia d ue to greater than expected blood loss 10/15/2022 Primary osteoarthritis of right hip 08/18/2022 Hyperlipidemia 02/07/2021 Hip arthritis 10/12/2017 Chronic pain of left ankle 06/29/2017 Atypical nevi 12/22/2016 Overview (03/05/2024): Referred to derm 11/2016 Diagnosis deferred 12/22/2016 Overview (03/05/2024): Midline Grade 1/4 Cystocele Hyperactivity of bladder 12/22/2016 Overview (03/05/2024): PVU 2016 Multiple thyroid nodules 12/22/2016 Overview (03/05/2024): 03/18- FNA- benign, follicular and metaplastic cells 12/11/2016 US: Bilateral thyroid nodules. Consider FNA under US guidance 1.0 cm left lower pole nodule given poorly defined margins and patient's family history. Initial imaging follow-up of the right lobe nodule in 6 months is recommended. -Thyroid cancer in mother Positive test for herpes simplex virus (HSV) ant ibody 12/22/2016 Overview (03/05/2024): 06/26/2011 HSV IGG 39.7 (pos > 1), HSV 2 IGG AB 4.62 ( ref range 0-0.90) Rectocele 12/22/2016 Overview (03/05/2024): Grade 1/4 Urge and stress incontinence 12/22/2016 Uterine prolapse 12/22/2016 Cyst of right ovary 12/14/2016 Overview (03/05/2024): Transvaginal ultrasound 12/15, recommended one-year follow-up Recurrent major depressive disorder, in remissio n 12/07/2016 Overview (03/05/2024): Sees Psych- Dr Joel Chang Atypical squamous cells of u ndetermined significance (ASCUS) on Papanicolaou smear of cervix 12/03/2014 Overview (03/05/2024): 2015 ASCUS, hyperkeratosis, clue cells present, HPV negative Immunizations Name Administration Dates Next Due Influenza Quadravalent, MDCK , 0.5ml, preservative free (Flucelvax) 6mo and older 05/04/2023,01/08/2022,12/14/2020 Influenza trivalent, 0.5mL, preservative free (Fluarix; FluLaval; Fluzone) ages 6mo and older (Afluria) 3 years and older 02/15/2019 Influenza, Unspecified 01/02/2021 Tdap Tetanus diptheria acell ular pertussis (Boostrix; Adacel) 7yo and older 06/29/2017 Zoster recombinant (Shingrix ) 19yo and older 03/08/2019 Surgical History Surgery Date Site/Laterality Comments COLONOSCOPY 09/03/2021 PROCEDURE: HISTORICAL COLONOSCOPY; COMMENT: tubular adenomas Medical History Medical History Date Comments Atypical squamous cells of undetermined significance (ASCUS) on Papanicolaou smear of cervix 12/03/2014 DX:Atypical squamous cell s of undetermined significance (ASCUS) on Papanicolaou smear of cervix; COMMENT: 2014 ASCUS, hyperkeratosis, clue cells present, HPV negative Cyst of right ovary 12/14/2016 DX:Cyst of r ight ovary; COMMENT: Transvaginal ultrasound 12/15, recommended one-year follow-up Cystocele 12/22/2016 DX:Cystocele; CO MMENT: Midline Grade 1/4 Gastroesophageal reflux disease 12/07/2016 DX:Gastroesophageal reflux disease Hyperactivity of bladder 12/22/2016 DX:Hype ractivity of bladder; COMMENT: PVU 2016 Moderate drinker of alcohol 12/07/2016 DX:M oderate drinker of alcohol Multiple thyroid nodules 12/22/2016 DX:Mult iple thyroid nodules; COMMENT: 12/11/2016 US: Bilateral thyroid nodules. Consider FNA under US guidance 1.0 cm left lower pole nodule given poorly defined margins and patient's family history. Initial imaging follow-up of the right lobe nodule in 6 months is recommended. -Thyroid cancer in mother Positive test for herpes sim plex virus (HSV) antibody 12/22/2016 DX:Positive test for herpes simplex virus (HSV) antibody; COMMENT: 06/26/2011 HSV IGG 39.7 (pos > 1), HSV 2 IGG AB 4.62 ( ref range 0-0.90) Rectocele 12/22/2016 DX:Rectocele; CO MMENT: Grade 1/4 Recurrent major depressive d isorder, in remission (CMS/HCC) 12/07/2016 DX:Recurrent major depressiv e disorder, in remission (HCC); COMMENT: sees psych Tobacco abuse 12/07/2016 DX:Tobacco abuse Urge and stress incontinence 12/22/2016 DX: Urge and stress incontinence Uterine prolapse 12/22/2016 DX:Uterine prol apse Atypical nevi 12/22/2016 DX:Atypical nevi ; COMMENT: Referred to derm 11/2016 Hip arthritis 10/12/2017 DX:Hip arthritis Anemia DX:Anemia Hyperlipidemia DX:Hyperlipidemi a Primary osteoarthritis of right hip 08/18/2022 DX:Primary osteoarthritis of right hip Family History Medical History Relation Name Comments Other: DM I Father Other: thyroid cancer Mother Ulcers , CVA Other: DMI Sister 7 thyroid CA, sei zure, liver disease Breast cancer Neg Hx Relation Name Status Comments Father Mother Sister 7 Social History Tobacco Use Types Packs/Day Years Used Date Smoking Tobacco: Former Cigarettes Q uit: 07/15/2022 Smokeless Tobacco: Never Alcohol Use Standard Drinks/Week Comments Not Currently 0 (1 standard drink = 0.6 oz pur e alcohol) Comments Unknown Sex and Gender Information Value Date Recorded Sex Assigned at Not on file Legal Sex Female 7:09 AM EST Gender Identity Not on file Sexual Orientation Not on file Obstetrics History Last Filed Vital Signs Vital Sign Reading Time Taken Comments Blood Pressure 120/80 05/04/2023 3:01 PM EST Pulse 90 05/04/2023 3:01 PM EST Temperature - - Respiratory Rate - - Oxygen Saturation - - Inhaled Oxygen Concentration - - Weight 83.1 kg (183 lb 3.2 oz) 05/04/2023 3:01 P M EST Height 162.6 cm (5' 4 ) 05/04/2023 3:01 PM EST Body Mass Index 31.45 05/04/2023 3:01 PM EST Plan of Treatment Health Maintenance Due Date Last Done Comments Pneumococcal Vaccine: 50+ Years (1 of 2 - PCV) 1981 Pneumococcal Vaccine: Pediatrics (0 to 5 Years) and At-Risk Patients (6 to 64 Years) (1 of 2 - PCV) 1981 Zoster Vaccines (2 of 2) 05/03/2019 03/08/2019 Cervical Cancer Screening: Pap Smear 03/03/2020 03/03/2017 Social Influencers of Health Screening 02/07/2022 Breast Cancer Screening 02/17/2023 02/17/2021, 12/14 COVID-19 Vaccine ( season) 2023 03/26/2021, 06/24/2020, 06/03/2020 Influenza Vaccine (#1) 2023 , 01/08/2022, 01/02/2021, Additional history exists Depression Screening 05/03/2024 05/04/2023 Colorectal Cancer Screening: Colonoscopy 09/03/2026 09/03/2021 DTaP,Tdap,and Td Vaccines (2 - Td or Tdap) 06/30/2027 06/29/2017 Cholesterol Screening (Lipid Panel) 10/16/2027 10/15/2022 RSV Immunization Patients 60+ Years Old (1 - 1-dose 75+ series) 2037 HIV Screening Completed 03/03/2017 Hepatitis C Screening Completed 03/03/2017 HIB Vaccines Aged Out No longer eligi ble based on patient's age to complete this topic HPV Vaccines Aged Out No longer eligi ble based on patient's age to complete this topic Hepatitis A Vaccines Aged Out No long er eligible based on patient's age to complete this topic Hepatitis B Vaccines Aged Out No long er eligible based on patient's age to complete this topic IPV Vaccines Aged Out No longer eligi ble based on patient's age to complete this topic MMR Vaccines Aged Out No longer eligi ble based on patient's age to complete this topic Meningococcal ACWY Vaccine Aged Out N o longer eligible based on patient's age to complete this topic Meningococcal B Vacine Aged Out No lo nger eligible based on patient's age to complete this topic RSV Immunization Patients Under 20 months Aged Out No longer eligible based on patient's age to complete this topic Varicella Vaccines Aged Out No longer eligible based on patient's age to complete this topic Procedures Procedure Name Priority Date/Time Associated Diagnosis Comments HM DEPRESSION SCREENING Routine 05/04/2023 LIPID PANEL Routine 10/15/2022 COLONOSCOPY Routine 09/03/2021 SCREENING MAMMOGRAPHY BI 2-VIEW BREAST INC CAD Routine 02/17/2021 1:21 PM EST Encounter for general adult medical examination without abnormal findings Nontoxic multinodular goiter Gastro-esophageal reflux disease without esophagitis Mixed incontinence Tobacco use Major depressive disorder, recurrent, in remission, unspecified (CMS/HCC) HEPATITIS C SCREENING Routine 03/03/2017 HIV SCREENING Routine 03/03/2017 PAP SMEAR Routine 03/03/2017 from Last 3 Months or Most Recently Relevant to Health Maintenance Results * Depression Screening (05/04/2023) Depression Screening ABSTRACTED [facility] Provider HEALTH MAINTENANCE Final Result * (ABNORMAL) Lipid panel (10/15/2022) Pathologist [facility] LDL/HDL Ratio 4 0 - 4 Triglycerides 162(A) 0 - 150 mg/dL Cholesterol 163 0 - 200 mg/dL HDL 47 >=40 mg/dL LDL Cholesterol 84 0 - 100 mg/dL Blood Venous blood specimen / Unknown [facility] Provider LAB BLOOD ORDERABLES Selina l Result * Colonoscopy (09/03/2021) Colonoscopy NO INTERPRETATION , ABSTRACTED Anatomical Region Laterality Modality Other [facility] Provider HEALTH MAINTENANCE Final Result * SCREENING MAMMOGRAPHY BI 2-VIEW BREAST INC CAD (02/17/2021 1:21 PM EST) Anatomical Region Laterality Modality Radiographic Dinora ging 02/06/2021 11:5 7 AM EST Narrative 02/18/2021 8:06 AM EST This is a summary report. The complete report is available in the patient's medical record. If you cannot access the medical record, please contact the sending organization for a detailed fax or copy. Full field digital screening 2D and 3D mammography, reviewed with CAD and compared to previous mammogram of 12/14/2018.. ??The breasts are composed of fatty and fibroglandular tissue. ??No suspicious mass, architectural distortion or suspicious calcifications are identified. IMPRESSION: : No mammographic evidence of malignancy. BIRADS 1-Negative; N. 5 year breast cancer risk assessment 1.4 % Lifetime breast cancer risk assessment 7.8 % Breast cancer risk category Low (<15%) Procedure Note Kandi Ferrell MD - 02/17/2022 This is a summary report. The complete report is available in thepatient's medical record. If you cannot access the medical record, pleasecontact the sending organization for a detailed fax or copy. Full field digital screening 2D and 3D mammography, reviewed with CAD andcompared to previous mammogram of 12/14/2018.. The breasts are composedof fatty and fibroglandular tissue. No suspicious mass, architecturaldistortion or suspicious calcifications are identified. IMPRESSION: : No mammographic evidence of malignancy. BIRADS 1-Negative; N. 5 year breast cancer risk assessment 1.4 % Lifetime breast cancer risk assessment 7.8 % Breast cancer risk category Low (<15%) Result [facility] Shira Zhou FLYING II INSTRUCTOR IMG XR PROCEDURES Final Re sult * HIV Screening (03/03/2017) HIV Screening ABSTRACTED Historical Provider HEALTH MAINTENANCE Final Result * Hepatitis C Screening (03/03/2017) Pathologist [facility] Hepatitis C Screening ABSTRACTED Historical Provider HEALTH MAINTENANCE Final Result * Pap Smear (03/03/2017) Pathologist [facility] Pap smear NEGATIVE, ABSTRACTED Historical Provider HEALTH MAINTENANCE Final Result from Last 3 Months or Most Recently Relevant to Health Maintenance Care Teams It Analyst Relationship Specialty Start Date End Date Brooke Barger MD [address] [place] [address] PCP - General Internal Medicine 02/06/21
== END 2024-05-11 14:24 | disposition home or self-care (01) ==
LOC: HO.HOP 13:05
PROVIDERS: PCP Internal Medicine; Visit Provider Psychiatry & Neurology Psychiatry
DX: F33.9 Major depressive disorder, recurrent, unspecified (principal); F10.21 Alcohol dependence, in remission
CPT/HCPCS: 90833; 99213

== ENCOUNTER → 2024-05-11 13:05 | Outpatient (BNVA) | payer OTHER, SELFPAY | PROVIDERS: PCP Internal Medicine; Visit Provider Psychiatry & Neurology Psychiatry | DX: F33.9 Major depressive disorder, recurrent, unspecified (principal); F10.21 Alcohol dependence, in remission; Z71.89 Other specified counseling | CPT/HCPCS: 99212 ==